=== PATIENT | female | born 1980 | race African-American/Black ===

== ENCOUNTER 2016-06-24 17:25 | Emergency (ER) | payer MEDICAID ==
[~2016-06-24] VITALS: Ht 167.6 cm; Wt 75.0 kg
[~2016-06-24 17:25] MED LIST: BACT2OIN TOP; CEPH500C3 PO; Z.0.NO CURRENT MEDS
[2016-06-24 17:31] VITALS: BP 139/86; PULSE 88; RESP 14; TEMP 98.4; O2SAT 100
[2016-06-24] MEDS ORDERED: ONDANSETRON HCL 4 MG/2 ML VIAL IV PUSH ONE (18:00)
[2016-06-24] MEDS ORDERED: MORPHINE SULFATE 8 MG/ML INJ IV PUSH ONE (18:00)
[2016-06-24] MEDS ORDERED: SODIUM CHLORIDE 0.9% FLUSH 5 ML FLUSH IVF PRN (18:00)
[2016-06-24] MEDS ORDERED: CLINDAMYCIN INJ 900 MG in SODIUM CHLORIDE 0.9% INJ 100 ML IV ONE ×4 (18:00)
--- NOTE | 2016-06-24 18:02 | PD ---
HPI Chief Complaint: Oral / Dental Pain or Problem Time Seen by Provider: 17:55 Travel History International Travel<30 days: No Contact w/Intl Traveler<30days: No Traveled to known affect area: No History of Present Illness HPI Patient is a 35-year-old female who presents emergency department for evaluation of dental pain. Patient states the pain started last night, she states her pain is a 9 out of 10 and describes as aching and throbbing. She has an appointment with a new dentist but cannot be seen until July 23. She denies any fevers, chills, nausea, vomiting, headache, neck pain, difficulty swallowing. PFSH Past Medical History Medical History: Denies Significant Hx ?: Not : 4 Para: 4 Past Surgical History Section: Yes Social History Alcohol Use: Yes (weekends) Tobacco Use: No Substance Use: No Allergies-Medications (Allergen,Severity, Reaction): Coded Allergies: Sulfa (Verified Allergy, Severe, HIVES, 06/24/16) Reported Meds & Prescriptions Reported Meds & Active Scripts Active Reported Flexeril (Cyclobenzaprine HCl) 10 Mg Tab 10 Mg PO HS Review of Systems Except as stated in HPI: all other systems reviewed are Neg General / Constitutional: No: Fever, Chills HENT: Positive: Dental Difficulties, Other (right lower jaw swelling) Physical Exam Narrative GENERAL: Well-nourished, well-developed patient. SKIN: Warm and dry. HEAD: Normocephalic. Right lower jaw is edematous, and tender to palpation. No erythema noted. MOUTH: Mucous membranes moist, no lesions, appears normal, gums on the right lower jaw appear mildly edematous, no fluctuance palpated. No exudates noted. Right second molar is chipped. EYES: No scleral icterus. No injection or drainage. NECK: Supple, trachea midline. No JVD or lymphadenopathy. CARDIOVASCULAR: Regular rate and rhythm without murmurs, gallops, or rubs. RESPIRATORY: Breath sounds equal bilaterally. No accessory muscle use. GASTROINTESTINAL: Abdomen soft, non-tender, nondistended. MUSCULOSKELETAL: No cyanosis, or edema. BACK: Nontender without obvious deformity. No CVA tenderness. Data Data Last Documented VS Vital Signs Date Time Temp Pulse Resp B/P Pulse Ox O2 Delivery O2 Flow Rate FiO2 06/24/16 17:31 98.4 88 14 139/86 100 Room Air Orders Iv Access Insert/Monitor (06/24/16 17:59) Clindamycin Inj (Cleocin Inj) (06/24/16 18:00) Ondansetron Inj (Zofran Inj) (06/24/16 18:00) Morphine Inj (Morphine Inj) (06/24/16 18:00) Sodium Chloride 0.9% Flush (Ns Flush) (06/24/16 18:00) [facility] Medical Decision Making Medical Screen Exam Complete: Yes Emergency Medical Condition: Yes Interpretation(s) Vital Signs Date Time Temp Pulse Resp B/P Pulse Ox O2 Delivery O2 Flow Rate FiO2 06/24/16 17:31 98.4 88 14 139/86 100 Room Air Differential Diagnosis Abscess versus cellulitis versus dental caries versus dentalgia versus other Narrative Course Patient is a 35-year-old female who presents emergency for evaluation of dental pain. Pain started yesterday, patient is noted to have right lower facial swelling and tenderness on exam. Symptoms started last night. Patient be given morphine and IV antibiotics now. Her vital signs are stable, she is afebrile but does appear uncomfortable. Patient reports improvement in pain. She'll be given a prescription for pain medication as well as antibiotics. She is encouraged to a dentist. She is encouraged to return to emergency department for any new or worsening symptoms. Patient verbalized understanding of these instructions. Patient is stable for discharge. Diagnosis Primary Impression: Dental abscess Referrals: Dentist 1 week Patient Instructions: Dental Abscess (GEN), General Instructions, Narcotic given in the ED Departure Forms: Tests/Procedures, Work Release Enter return to work date: Jun 26, 2016 Additional Instructions: Complete full course of antibiotics as directed Return to emergency department for any new or worsening symptoms May apply warm compress to affected area Follow-up with your dentist in 1 week Med/Other Pt SpecificInfo: Prescription(s) given Scripts Ibuprofen 800 Mg [id number] Mg PO Q6HR PRN (PAIN) #40 TAB Ref 0 Prov:Rain Urrutia 06/24/16 Clindamycin 150 Mg [id number] Mg PO Q8HR 10 Days Ref 0 Prov:Rain Urrutia 06/24/16 Disposition: 01 DISCHARGE HOME Condition: Stable Rain Urrutia Jun 24, 2016 18:02
[2016-06-24] MEDS ORDERED: CYCL1TAB29 PO (18:11)
[2016-06-24] MEDS ORDERED: CLIN1CAP5 PO (18:52)
[2016-06-24] MEDS ORDERED: IBUP800T23 PO (18:52)
[2016-06-24] MEDS ORDERED: PERC7.5T13 PO (18:52)
[2016-06-24 19:01] VITALS: BP 101/64; PULSE 88; RESP 16; O2SAT 98
== END 2016-06-24 19:11 | disposition home or self-care (01) ==
LOC: NEPB 17:25
DX: K04.7 Periapical abscess without sinus (principal)
CPT/HCPCS: 96365; 96375; 99282; J2270; J2405

== ENCOUNTER 2016-11-03 07:57 | Emergency (ER) | payer MEDICAID ==
[~2016-11-03] VITALS: Ht 167.6 cm; Wt 76.0 kg
[~2016-11-03 07:57] MED LIST changes: -BACT2OIN TOP; -CEPH500C3 PO; +CLIN1CAP5 PO; +CYCL1TAB29 PO; +IBUP800T23 PO; +PERC7.5T13 PO; -Z.0.NO CURRENT MEDS
[2016-11-03 07:59] VITALS: BP 119/66; PULSE 84; RESP 16; TEMP 99; O2SAT 100
[2016-11-03] MEDS ORDERED: IBUP800T23 PO (08:28)
[2016-11-03] MEDS ORDERED: PRED-503 PO (08:28)
--- NOTE | 2016-11-03 08:29 | PD ---
HPI Chief Complaint: Musculoskeletal Complaint Time Seen by Provider: 08:27 Travel History International Travel<30 days: No Contact w/Intl Traveler<30days: No Traveled to known affect area: No History of Present Illness HPI 36-year-old female presents to the emergency Department with complaint of right elbow pain 2 months. Denies injury. Denies paresthesias, loss of sensation, decreased range of motion, decreased strength to the affected extremity. Denies fever, vomiting. Denies swelling or redness to the area. Has been taking ibuprofen and Tylenol with good relief of pain. Pain is worse in the morning when she wakes up. Pain is better throughout the day. Allergies to sulfa. Has no other medical complaints. No other modifying factors or associated signs and symptoms. PFSH Past Medical History Medical History: Denies Significant Hx Diminished Hearing: No Respiratory: Yes (asthma) Tetanus Vaccination: Unknown Influenza Vaccination: No ?: Not LMP: 10/21/16 : 4 Para: 4 Past Surgical History Surgical History: No Previous Surgery Section: Yes Social History Alcohol Use: Yes (occ) Tobacco Use: No Substance Use: No Allergies-Medications (Allergen,Severity, Reaction): Coded Allergies: Sulfa (Verified Allergy, Severe, HIVES, 11/03/16) Reported Meds & Prescriptions Reported Meds & Active Scripts Active Deltasone (Prednisone) 20 Mg Tab 40 Mg PO DAILY 5 Days Ibuprofen 800 Mg Tab 800 Mg PO Q6HR PRN Percocet (Oxycodone-Acetaminophen) 7.5-325 mg Tab 1 Tab PO Q4H PRN Ibuprofen 800 Mg Tab 800 Mg PO Q6HR PRN Clindamycin (Clindamycin HCl) 150 Mg Cap 300 Mg PO Q8HR 10 Days Reported Flexeril (Cyclobenzaprine HCl) 10 Mg Tab 10 Mg PO HS Review of Systems Except as stated in HPI: all other systems reviewed are Neg Physical Exam Narrative GENERAL: Well-nourished, well-developed female patient, in no acute distress; afebrile, nontoxic-appearing SKIN: Warm and dry. HEAD: Atraumatic. Normocephalic. EYES: Pupils equal and round. No scleral icterus. No injection or drainage. ENT: Mucosa pink and moist. Airway patent. NECK: Trachea midline. CARDIOVASCULAR: Regular rate. RESPIRATORY: No accessory muscle use. GASTROINTESTINAL: Flat. 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 Right upper extremity is supple and non- tense 2+ radial pulses and sensory intact And without erythema or edema. No obvious deformities. No clubbing. No cyanosis. No edema. NEUROLOGICAL: Awake and alert. Oriented 3. No obvious cranial nerve deficits. Motor grossly within normal limits. Normal speech. PSYCHIATRIC: Appropriate mood and affect; insight and judgment normal. Data Data Last Documented VS Vital Signs Date Time Temp Pulse Resp B/P Pulse Ox O2 Delivery O2 Flow Rate FiO2 11/03/16 07:59 99.0 84 16 119/66 100 Room Air MDM Medical Decision Making Medical Screen Exam Complete: Yes Emergency Medical Condition: Yes Medical Record Reviewed: Yes Differential Diagnosis Bursitis, nerve entrapment, nonspecific elbow pain, less likely septic joint Narrative Course 36-year-old female with possible ulnar nerve entrapment to the right elbow. Right upper extremity with2+ radial pulses are intact without erythema or edema with full range of motion and strength. Patient is afebrile and nontoxic- appearing. Denies fever, vomiting. Deltasone and ibuprofen prescribed for home. Patient verbalizes understanding and agreement with treatment plan. Patient is medically cleared and stable for discharge. Discussed reasons to return to the emergency department. Instructed patient to follow up with primary care provider. Patient agrees with treatment plan. The patients vital signs are stable and the patient is stable for outpatient follow-up and treatment. Patient discharged home, stable and in no acute distress. Diagnosis Primary Impression: Right elbow pain Referrals: Primary Care Physician Patient Instructions: General Instructions, Musculoskeletal Pain (ED) Departure Forms: Tests/Procedures, Work Release Enter return to work date: November 04, 2016 Additional Instructions: Ibuprofen or Tylenol as directed and as needed for pain and inflammation Rest and immobilize the affected area Apply ice to reduce swelling to affected area Avoid elbow pressure by not leaning or placing your weight on your elbow to rise from a lying or sitting position Follow-up with primary care provider Follow-up with orthopedic as needed Return to the emergency department immediately with worsening of symptoms Med/Other Pt SpecificInfo: Prescription(s) given Scripts Prednisone (Deltasone)20 Mg Tab40 Mg PO DAILY 5 Days Ref 0 Prov:Hilary Vitale [employer]LE DEVELOPER 11/03/16 Ibuprofen 800 Mg [id number] Mg PO Q6HR PRN (PAIN) #30 TAB Ref 0 Prov:Hilary Vitale 11/03/16 Disposition: 01 DISCHARGE HOME Condition: Stable Hilary Vitale November 03, 2016 08:29
== END 2016-11-03 08:43 | disposition home or self-care (01) ==
LOC: NEPK 07:57
DX: M25.521 Pain in right elbow (principal)
CPT/HCPCS: 99283

== ENCOUNTER 2017-01-22 15:31 | Emergency (ER) | payer MEDICAID ==
[~2017-01-22] VITALS: Ht 165.1 cm; Wt 80.0 kg
[~2017-01-22 15:31] MED LIST changes: +PRED-503 PO
[2017-01-22 15:33] VITALS: BP 121/67; PULSE 67; RESP 18; TEMP 98.5; O2SAT 100
--- NOTE | 2017-01-22 15:50 | PD ---
Physical Exam Time Seen by Provider: 15:48 Narrative 36 y/o female here for evaluation of lower back pain. Vital signs reviewed. seen at triage desk. Awaiting bed placement. Data Data Last Documented VS Vital Signs Date Time Temp Pulse Resp B/P Pulse Ox O2 Delivery O2 Flow Rate FiO2 01/22/17 15:33 98.5 67 18 121/67 100 Room Air [facility] Medical Record Reviewed: Yes Supervised Visit with MERARY: No Eddy Leonardo Jan 22, 2017 15:50
[2017-01-22] MEDS ORDERED: NAPR500T PO (16:58)
--- NOTE | 2017-01-22 17:29 | PD ---
HPI Chief Complaint: Pain: Acute or Chronic Time Seen by Provider: 17:25 Travel History International Travel<30 days: No Contact w/Intl Traveler<30days: No Traveled to known affect area: No History of Present Illness HPI 36-year-old female presents to the emergency Department with complaint of bilateral low back pain 5 months. Denies new or recent injury. Followed up with her primary care provider, Dr. Lawrence, and has been taking naproxen and Flexeril for symptom management. Denies encopresis, incontinence, saddle anesthesias. Denies paresthesias, loss of sensation, decreased range of motion , decreased strength to bilateral lower extremities. Denies difficulty ambulating. Denies IV drug use or cancer. Denies fever, vomiting, abdominal pain. Denies dysuria, urgency, frequency, hematuria. Symptoms are mild in severity. Allergies to sulfa. Has no other medical complaints. No other modifying factors or associated signs and symptoms. PFSH Past Medical History Asthma: Yes Diminished Hearing: No Musculoskeletal: Yes (BACK PAIN ) Respiratory: Yes (asthma) Immunizations Current: Yes Tetanus Vaccination: Unknown Influenza Vaccination: No ?: Not : 4 Para: 4 Past Surgical History Section: Yes (x 1) Gynecologic Surgery: Yes ( x 1) Social History Alcohol Use: Yes (occ) Tobacco Use: No Substance Use: No Allergies-Medications (Allergen,Severity, Reaction): Coded Allergies: Sulfa (Verified Allergy, Severe, HIVES, 01/22/17) Reported Meds & Prescriptions Reported Meds & Active Scripts Active Reported Naproxen 500 Mg Tab 500 Mg PO BID Flexeril (Cyclobenzaprine HCl) 10 Mg Tab 10 Mg PO HS Review of Systems Except as stated in HPI: all other systems reviewed are Neg Physical Exam Narrative GENERAL: Well-nourished, well-developed female patient, in no acute distress; afebrile, nontoxic-appearing SKIN: Warm and dry. HEAD: Atraumatic. Normocephalic. EYES: Pupils equal and round. No scleral icterus. No injection or drainage. ENT: Mucosa pink and moist. Airway patent. NECK: Trachea midline. CARDIOVASCULAR: Regular rate. RESPIRATORY: No accessory muscle use. GASTROINTESTINAL: Rounded. MUSCULOSKELETAL: Bilateral lower extremities supple and non-tense with 2+ pedal pulses and sensory intact; with full range of motion and 5/5 strength. 2 + DTRs bilaterally. Active dorsiflexion and extension of bilateral feet. Bilateral straight leg raise is negative for low back pain. Ambulatory in room with normal gait. Sitting up in bed at 90. No obvious deformities. No clubbing. No cyanosis. No edema. BACK: No midline point tenderness on palpation of the lumbar spine. Tenderness on palpation of bilateral lumbar iliosacral area. No obvious deformities. NEUROLOGICAL: Awake and alert. Oriented 3. No obvious cranial nerve deficits. Motor grossly within normal limits. Normal speech. Moves all extremities. 5/5 strength to all extremities. Sensory intact. PSYCHIATRIC: Appropriate mood and affect; insight and judgment normal. Data Data Last Documented VS Vital Signs Date Time Temp Pulse Resp B/P Pulse Ox O2 Delivery O2 Flow Rate FiO2 01/22/17 15:33 98.5 67 18 121/67 100 Room Air MDM Medical Decision Making Medical Screen Exam Complete: Yes Emergency Medical Condition: No Medical Record Reviewed: Yes Differential Diagnosis Chronic low back pain, acute exacerbation of chronic low back pain, medical clearance Narrative Course 36-year-old female with low back pain 5 months. Denies new or recent injury. Denies encopresis, incontinence, saddle anesthesias. Patient ambulatory in the room with normal gait. No midline point tenderness on the patient of the lumbar spine. Patient denies IV drug use or cancer. Denies fever, vomiting. Patient is afebrile and nontoxic-appearing. Patient has prescriptions for Flexeril and naproxen from her primary care provider. Denies urinary symptoms. Instructed patient to continue Flexeril and naproxen as prescribed and as needed for low back pain. Vital signs are stable and the patient is stable for outpatient follow-up and treatment. The patient has no urgent or emergent medical complaints. There is no emergent or urgent medical need at this time. I instructed the patient to follow up with their primary care provider. A medical screening exam was performed: At the time of evaluation the presenting medical condition was determined not to be of an emergent nature. The patient was given the option of receiving additional care, but declined. Patient was given options for additional community resources from which to obtain care. The Patient Has Been advised to seek medical attention for their presenting complaint. The patient has been advised to return to the ER at any time if an emergent condition develops. Diagnosis Primary Impression: Encounter for medical screening examination Condition: Stable Hilary VitaleP Jan 22, 2017 17:29
== END 2017-01-22 18:14 | disposition left against medical advice (07) ==
LOC: NEPK 15:31
DX: M54.5 Low back pain (principal); J45.909 Unspecified asthma, uncomplicated
CPT/HCPCS: 99281

== ENCOUNTER 2017-03-04 22:43 | Emergency (ER) | payer MEDICAID ==
[~2017-03-04] VITALS: Ht 165.1 cm; Wt 82.5 kg
[~2017-03-04 22:43] MED LIST changes: -CLIN1CAP5 PO; -IBUP800T23 PO; +NAPR500T PO; -PERC7.5T13 PO; -PRED-503 PO
[2017-03-04 22:45] VITALS: BP 119/77; PULSE 83; RESP 16; TEMP 98.9; O2SAT 100
[2017-03-04] MEDS ORDERED: DICL75TA PO (23:34)
[2017-03-04] MEDS ORDERED: AUGM875T3 PO (23:34)
--- NOTE | 2017-03-04 23:40 | PD ---
HPI Chief Complaint: Bite or Sting Time Seen by Provider: 23:36 Travel History International Travel<30 days: No Contact w/Intl Traveler<30days: No Traveled to known affect area: No History of Present Illness HPI 36-year-old [id number] white female presents to emergency department for evaluation of a dog bite to her left forearm. This occurred yesterday. She states that friends dog had bitten her in the left forearm and she injured her home. The dog is acting normal. She denies any numbness, tingling or weakness. She states the area had swollen up. The skin was not completely broken. She has not had a tetanus shot over 5 years. Pain is mild. PFSH Past Medical History Asthma: Yes Diminished Hearing: No Musculoskeletal: Yes (BACK PAIN ) Respiratory: Yes (asthma) Immunizations Current: Yes Tetanus Vaccination: > 5 Years Influenza Vaccination: No ?: Not : 4 Para: 4 Past Surgical History Section: Yes (x 1) Gynecologic Surgery: Yes ( x 1) Social History Alcohol Use: Yes (occ) Tobacco Use: No Substance Use: No Allergies-Medications (Allergen,Severity, Reaction): Coded Allergies: Sulfa (Sulfonamide Antibiotics) (Unverified Allergy, Severe, HIVES, ) Reported Meds & Prescriptions Reported Meds & Active Scripts Active Augmentin (Amoxicillin-Clavulanate) 875-125 Mg Tab 1 Tab PO BID Diclofenac Sodium DR (Diclofenac Sodium) 75 Mg Tabdr 75 Mg PO BID Reported Naproxen 500 Mg Tab 500 Mg PO BID Flexeril (Cyclobenzaprine HCl) 10 Mg Tab 10 Mg PO HS Review of Systems Except as stated in HPI: all other systems reviewed are Neg Physical Exam Narrative GENERAL: This is a well-nourished, well-developed patient, in no apparent distress. SKIN: Warm and dry. There is an abrasion to the dorsal distal forearm. There is no deep puncture. HEAD: Atraumatic. Normocephalic. EYES: PERRL, EOMI, no discharge or injection. No scleral icterus. EARS: Clear NOSE: Nasal turbinates appear normal. THROAT: Mucosa pink and moist. Airway patent. NECK: Trachea midline. supple, moves head freely. LUNGS: Clear to auscultation. CV: Regular in rhythm. ABDOMEN: Soft nontender. EXT: No clubbing cyanosis. Examination left upper extremity reveals swelling to the distal radial aspect of the forearm just above the wrist. There is superficial abrasions and skin but no deep puncture. There is no erythema or warmth. No discharge. No bony tenderness. Patient is able to extend and flex her wrist freely. She has intact median/ulnar/radial nerves. The injury is directly over a distal vein which appears to have ruptured underneath the skin. There is mild ecchymosis. This appears to be a hematoma. Data Data Last Documented VS Vital Signs Date Time Temp Pulse Resp B/P (MAP) Pulse Ox O2 Delivery O2 Flow Rate FiO2 03/04/17 22:45 98.9 83 16 119/77 (91) 100 Room Air Orders Orders Tetanus/Diphtheria Tox Adult (Tetanus/Di (03/04/17 23:45) Naproxen (Naprosyn) (03/04/17 23:45) Amoxicil-Clavulanate (Augmentin) (03/04/17 23:45) MDM Medical Decision Making Medical Screen Exam Complete: Yes Emergency Medical Condition: Yes Medical Record Reviewed: Yes Differential Diagnosis MDM: High Differential diagnoses: Fracture, sprain, strain, dislocation, contusion, neurovascular injury, dog bite Narrative Course Patient's given tetanus immunization. Naprosyn 500 mg by mouth and Augmentin 875 mg by mouth. This is a dog bite, hematoma left wrist Diagnosis Primary Impression: Dog bite of left wrist Qualified Codes: S61.552A - Open bite of left wrist, initial encounter; W54.0XXA - Bitten by dog, initial encounter Additional Impression: Hematoma Patient Instructions: General Instructions Additional Instructions: Rest. Elevation. Daily wound care with soap, water, Neosporin. Diclofenac and Augmentin. Recheck with a primary care doctor next 3-5 days. Return to the ER for any problems. Med/Other Pt SpecificInfo: Prescription(s) given Scripts Amoxicillin-Clavulanate (Augmentin) 875-125 Mg Tab 1 TAB PO BID for Infection, #14 TAB 0 Refills Prov: Becca Batista DO 03/04/[address] (Diclofenac Sodium DR) 75 Mg Tabdr 75 MG PO BID, #14 TAB 0 Refills Prov: Becca Batista DO 03/04/17 Disposition: 01 DISCHARGE HOME Condition: Stable Tereso Coreas Mar 04, 2017 23:40
[2017-03-04] MEDS ORDERED: NAPROXEN 500 MG TAB PO ONE (23:45)
[2017-03-04] MEDS ORDERED: AMOXICILLIN/CLAVULANATE K 875 MG TAB PO ONE (23:45)
[2017-03-04] MEDS ORDERED: TETANUS/DIPHTHERIA TOXOID ADULT 0.5 ML VIAL IM ONE (23:45)
== END 2017-03-05 00:08 | disposition home or self-care (01) ==
LOC: NETRI 22:43 → EDTENT 03-05 00:08
DX: S61.552A Open bite of left wrist, initial encounter (principal); W54.0XXA Bitten by dog, initial encounter; Z23 Encounter for immunization
CPT/HCPCS: 90471; 90714